=== PATIENT | male | born 1980 | race Caucasian/White ===

== ENCOUNTER 2020-07-29 08:00 | Outpatient (CLI) | payer SELFPAY ==
[2020-07-29 18:48] LABS: BASOPHILS % (AUTO) 0.2 %; EOSINOPHILS # (AUTO) 0.1 10^3/uL (0.0-0.7); EOSINOPHILS % (AUTO) 0.6 %; HGB - HEMOGLOBIN 14.8 g/dL (14.0-18.0); LYMPHOCYTES # (AUTO) 1.4 10^3/uL (1.5-3.5); LYMPHOCYTES % (AUTO) 11.5 %; MEAN CORPUSCULAR HEMOGLOBIN 30.1 pg (27.0-31.0); MEAN CORPUSCULAR VOLUME 91.1 fL (80.0-94.0); MEAN PLATELET VOLUME 11.9 fL (7.4-11.4); MONOCYTES # (AUTO) 1.5 10^3/uL (0.0-1.0); MONOCYTES % (AUTO) 12.2 %; NEUTROPHILS # (AUTO) 9.1 10^3/uL (1.5-6.6); NEUTROPHILS % (AUTO) 75.2 %; PLT - PLATELET COUNT 299 10^3/uL (130-450); RED BLOOD COUNT 4.92 10^6/uL (4.70-6.10); RED CELL DISTRIBUTION WIDTH 13.1 % (12.0-15.0); WHITE BLOOD COUNT 12.1 x10^3/uL (4.8-10.8)
[2020-07-29 18:57] LABS: ALBUMIN 3.9 g/dL (3.2-5.5); ALBUMIN/GLOBULIN RATIO 0.9 (1.0-2.2); BILIRUBIN,TOTAL 3.3 mg/dL (0.2-1.0); CALCIUM 10.1 mg/dL (8.5-10.3); CREATININE 0.7 mg/dL (0.6-1.2); TOTAL PROTEIN 8.1 g/dL (6.7-8.2)
== END 2020-07-29 23:59 | disposition home or self-care (01) ==
LOC: LAB.WCP 08:00
PROVIDERS: ATTEND Physician Assistant
DX: R10.9 Unspecified abdominal pain (principal)
CPT/HCPCS: 36415; 80053; 83690; 85025

== ENCOUNTER 2020-08-25 08:00 | Outpatient (CLI) | payer SELFPAY ==
[2020-08-25 17:50] LABS: BASOPHILS % (AUTO) 0.4 %; EOSINOPHILS # (AUTO) 0.1 10^3/uL (0.0-0.7); EOSINOPHILS % (AUTO) 1.7 %; HGB - HEMOGLOBIN 12.3 g/dL (14.0-18.0); LYMPHOCYTES # (AUTO) 1.7 10^3/uL (1.5-3.5); LYMPHOCYTES % (AUTO) 31.7 %; MEAN CORPUSCULAR HEMOGLOBIN 28.7 pg (27.0-31.0); MEAN CORPUSCULAR HGB CONC 30.6 g/dL (32.0-36.0); MEAN CORPUSCULAR VOLUME 93.7 fL (80.0-94.0); MEAN PLATELET VOLUME 11.6 fL (7.4-11.4); MONOCYTES # (AUTO) 0.8 10^3/uL (0.0-1.0); MONOCYTES % (AUTO) 14.9 %; NEUTROPHILS # (AUTO) 2.8 10^3/uL (1.5-6.6); NEUTROPHILS % (AUTO) 50.9 %; PLT - PLATELET COUNT 392 10^3/uL (130-450); RED BLOOD COUNT 4.29 10^6/uL (4.70-6.10); RED CELL DISTRIBUTION WIDTH 13.5 % (12.0-15.0); WHITE BLOOD COUNT 5.5 x10^3/uL (4.8-10.8)
[2020-08-25 18:10] LABS: ALBUMIN 2.9 g/dL (3.2-5.5); ALBUMIN/GLOBULIN RATIO 0.6 (1.0-2.2); ALKALINE PHOSPHATASE 79 IU/L (42-121); ALT ALANINE AMINOTRANSFERASE 10 IU/L (10-60); AST ASPARTATE AMINOTRANSFERASE < 10 IU/L (10-42); BILIRUBIN,TOTAL 0.5 mg/dL (0.2-1.0); BUN - BLOOD UREA NITROGEN 6 mg/dL (6-20); CALCIUM 9.4 mg/dL (8.5-10.3); CARBON DIOXIDE - CO2 29 mmol/L (21-32); CHLORIDE 103 mmol/L (101-111); CREATININE 0.8 mg/dL (0.6-1.2); GAMMA GLUTAMYL TRANSPEPTIDASE 45 IU/L (8-55); GLUCOSE 114 mg/dL (70-100); LIPASE 32 U/L (22-51); TOTAL PROTEIN 7.7 g/dL (6.7-8.2)
== END 2020-08-25 23:59 | disposition home or self-care (01) ==
LOC: LAB.WCP 08:00
PROVIDERS: ATTEND Family Medicine
DX: K85.21 Alcohol induced acute pancreatitis with uninfected necrosis (principal)
CPT/HCPCS: 36415; 80053; 82977; 83690; 85025

== ENCOUNTER 2021-03-07 19:33 | Emergency (ER) | payer SELFPAY ==
[2021-03-07] MEDS ORDERED: HYDROmorphone 1 MG/ML CARPUJECT IM STA (20:07)
[2021-03-07] MEDS ORDERED: oxyCODONE 5 MG TABLET PO STA (20:22)
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
--- NOTE | 2021-03-07 20:38 | XRAY Report ---
PROCEDURE: Knee 4 View RT INDICATIONS: Trauma TECHNIQUE: 4 views of the right knee(s) were acquired. COMPARISON: None. FINDINGS: Bones: There is a nondisplaced lateral tibial plateau fracture with minimal central depression. There may be involvement of the tibial eminence.. No suspicious bony lesions. Soft tissues: Moderate joint effusion. No suspicious soft tissue calcifications. IMPRESSION: 1. Nondisplaced lateral tibial plateau fracture. 2. Moderate knee joint effusion. Reviewed by: Shiela Escobar MD on 03/07/2021 8:37 PM PDT Approved by: Shiela Escobar MD on 03/07/2021 8:37 PM PDT Station ID: [id number]
[2021-03-07] MEDS ORDERED: oxyCODONE/ACET 5/325 Prepack 4 PO STA (21:14)
[2021-03-07 21:33] VITALS: BP 110/70
== END 2021-03-07 21:31 | disposition home or self-care (01) ==
LOC: ED 19:33
DX: S82.141A Displaced bicondylar fracture of right tibia, initial encounter for closed fracture (principal); V18.0XXA Pedal cycle driver injured in noncollision transport accident in nontraffic accident, initial encounter; Y93.55 Activity, bike riding
CPT/HCPCS: 73564; 96372; 99283; A9270; J1170

== ENCOUNTER 2021-03-10 16:16 | Outpatient (CLI) | payer MEDICAID ==
--- NOTE | 2021-03-10 16:57 | CT Report ---
PROCEDURE: LOWER EXTREMITY WO - RT INDICATIONS: FRACTURE OF RIGHT TIBIA TECHNIQUE: Noncontrast 3 mm axial sections acquired of the right knee, with coronal and sagittal reformats. COMPARISON: Plain films dated 03/07/2021 FINDINGS: Image quality: Excellent. Bones: Mildly displaced comminuted fracture of the proximal tibia, predominantly involving the later al tibial plateau but there is involvement of the medial metaphyseal cortex. Soft tissues: Lipohemarthrosis is present. IMPRESSION: 1. Proximal tibial fracture. 2. Lipohemarthrosis. Reviewed by: Julio Walker MD on 03/10/2021 4:55 PM PDT Approved by: Julio Walker MD on 03/10/2021 4:55 PM PDT Station ID: [id number]
== END 2021-03-10 16:17 | disposition home or self-care (01) ==
LOC: DI 16:16
PROVIDERS: ATTEND Orthopaedic Surgery
DX: S82.121A Displaced fracture of lateral condyle of right tibia, initial encounter for closed fracture (principal)

== ENCOUNTER 2021-04-04 13:30 | Outpatient (CLI) | payer MEDICAID ==
--- NOTE | 2021-04-04 14:20 | XRAY Report ---
PROCEDURE: Knee 3 View RT INDICATIONS: DISPLACED FX OF LATERAL CONDYLE OF R TIBIA TECHNIQUE: 3 views of the right knee(s) were acquired. COMPARISON: 03/07/[address] of right knee dated 03/10/2021 FINDINGS: Bones: Nondisplaced longitudinal fracture involving lateral portion of proximal tibial shaft extendin g to medial aspect of lateral tibial plateau is seen unchanged from prior study. No new fracture or d islocation is noted. No suspicious bony lesions. Soft tissues: Small to moderate suprapatellar joint effusion is seen. No suspicious soft tissue calc ifications. IMPRESSION: Nondisplaced proximal tibial shaft fracture extending to lateral tibial plateau unchange d from prior study. No new fracture or dislocation. Small to moderate joint effusion. Reviewed by: Isaac Khalil MD on 04/04/2021 2:19 PM PDT Approved by: Isaac Khalil MD on 04/04/2021 2:19 PM PDT Station ID: [id number]
== END 2021-04-04 23:59 | disposition home or self-care (01) ==
LOC: DI.N 13:30
PROVIDERS: ATTEND Orthopaedic Surgery
DX: S82.124A Nondisplaced fracture of lateral condyle of right tibia, initial encounter for closed fracture (principal)

== ENCOUNTER 2021-04-25 10:45 | Outpatient (CLI) | payer MEDICAID ==
--- NOTE | 2021-04-25 16:59 | XRAY Report ---
PROCEDURE: Knee 4 View RT INDICATIONS: DISPLACED FX OF LATERAL CONDYLE OF R TIBIA TECHNIQUE: 3 views of the right knee(s) were acquired. COMPARISON: Prior knee series dated 04/04/2021. FINDINGS: Bones: No significant interval change in appearance or alignment of minimally depressed proximal tibi al metaphyseal fracture extending to the medial aspect of the lateral tibial plateau.. No suspicious bony lesions. Soft tissues: Small joint effusion. No suspicious soft tissue calcifications. IMPRESSION: Minimally depressed proximal tibial fracture which extends to the lateral tibial plateau not significantly changed from prior exam. Reviewed by: GOOD Mueller on 04/25/2021 4:58 PM PDT Approved by: Joey Patel on 04/25/2021 4:58 PM PDT Station ID: [id number]
== END 2021-04-25 23:59 | disposition home or self-care (01) ==
LOC: DI.N 10:45
PROVIDERS: ATTEND Orthopaedic Surgery
DX: S82.121A Displaced fracture of lateral condyle of right tibia, initial encounter for closed fracture (principal)